=== PATIENT | male | born 1955 | race Caucasian/White ===

== ENCOUNTER → 2018-12-25 13:57 | Outpatient (CLI) | payer MEDICARE, OTHER, SELFPAY ==
[2018-12-25 13:10] VITALS: BMI 24.7
[2018-12-25 14:35] LABS: Hematocrit 46.3 % (40-54); Mean Corp Hgb Conc 34.6 g/gl (32-36); Mean Corpuscular Hgb 33.2 pg (27.0-32.0); Mean Corpuscular Volume 96.1 fL (80-94); Mean Platelet Vol. 11.1 fl (6.2-12.0); Platelet Count 290 K/mm3 (150-450); RBC Distribution Width CV 15.6 % (11.6-14.6); RBC Distribution Width SD 53.7 fl (35.1-43.9); Red Blood Count 4.82 M/mm3 (4.6-6.2); White Blood Count 7.9 K/mm3 (4.4-11.0)
[2018-12-25 14:40] LABS: Scan Indicated on CBC? Y/N NO
[2018-12-25 14:42] LABS: ALB/GLOB Ratio 1.1 RATIO (0.9-2.4); AST(SGOT) 21 U/L (15-37); Alanine Aminotransfer ALT/SGPT 19 U/L (16-61); Albumin, Serum 3.6 g/dL (3.2-5.0); Alkaline Phosphatase 56 U/L (45-117); Anion Gap 6 (5-15); BUN 20 mg/dL (7-18); BUN/Creat Ratio 18.2 RATIO (10-20); Calcium,Total 8.7 mg/dL (8.5-10.1); Chloride 106 mmol/L (98-107); EST Glomerular Filtration Rate 71 mL/min (>60); Est Glom Filt Rate - Afr Amer 86 mL/min (>60); Globulin 3.4 g/dL (2.2-4.2); Glucose 94 mg/dL (74-106); Potassium 4.4 mmol/L (3.5-5.1); Sodium Level 141 mmol/L (136-145)
[2018-12-28 13:01] LABS: Carcinoembryonic Antigen 4.3 ng/mL (0.0-4.7)
== END ==
PROVIDERS: Family Provider Family Medicine; PCP Family Medicine; Referring Provider Surgery; Visit Provider Surgery
DX: Z01.818 Encounter for other preprocedural examination (principal); Z85.038 Personal history of other malignant neoplasm of large intestine
CPT/HCPCS: 36415; 80053; 82378; 85027

== ENCOUNTER → 2018-12-31 06:51 | Outpatient (CLI) | payer MEDICARE, OTHER, SELFPAY ==
[2018-12-25 13:10] VITALS: BMI 24.7
--- NOTE | 2018-12-31 06:54 | CT_ITS ---
STUDY: CT ABDOMEN AND PELVIS WITH CONTRAST REASON FOR EXAM: Male, 63 years old. Abdomen pain above the umbilicus since colostomy. Pain lessens when lying down. Abdomen tightenings when walking. Colon cancer with colostomy P with radiation therapy and chemotherapy. RADIATION DOSAGE (If Supplied By Facility): CTDIvol = ( 13.32 ) mGy, DLP = ( 689.36 ) mGycm TECHNIQUE: Transaxial images were obtained from the dome of the diaphragm to the symphysis pubis without oral contrast. 100 IV/Oral Isovue 300 was administered. Sagittal and coronal images were reconstructed. Individualized dose optimization techniques were used for this CT. COMPARISON: None. FINDINGS: The visualized lung bases demonstrate a tiny calcified pulmonary granuloma within the right lateral lung base as well as mild to moderate, bibasal or dependent atelectasis. The visualized portions of the heart are within normal limits except for minimal calcified coronary artery plaque. Normal liver. There is high density sludge versus small calculi within the dependent region of the gallbladder neck, sequence 2, image 35. There is no intrahepatic nor extrahepatic biliary ductal dilatation. No evident choledocholithiasis. There is a diminutive spleen, potentially a splenic remnant and an adjacent tiny splenule. These findings appear unremarkable. Normal pancreas. Normal bilateral adrenal glands. There is an approximately 3.4 cm maximum dimension low density uniform focus involving and extending from the right renal anterior inferior pole. This finding measures approximately 22 Hounsfield units. There is an approximately 3.9 cm maximum dimension, amorphous, uniform low density focus within the central collecting system partially extending into the cortex and the island involving the left renal lower pole posteriorly. Normal visualized stomach. There is diastases of the rectus abdominis with extension of nondistended small bowel within the ventral midline, sequence 2, image 67. No evidence of small bowel strangulation or herniation. There are a few, nonspecific small bowel air-fluid levels involving nondistended small bowel loops. No inguinal hernia. Unremarkable appearing urinary bladder. There is a large amount of air and stool throughout the cecum, ascending colon, transverse colon and proximal descending colon. A left lower quadrant unremarkable-appearing ostomy is identified. No evidence of ostial herniation. There is non-visualization of the appendix. There is no free fluid. There is no free air. There is a large infrarenal abdominal aortic aneurysm measuring 4.62 cm in AP dimension by 4.7 cm transversely extending over a length of approximately 13.1 cm and extending into and involving the proximal common iliac arteries bilaterally. Multifocal calcified plaque is identified. The opacified region through the abdominal aortic aneurysm measures 2.9 cm in AP dimension by 3.2 cm in transverse dimension. No evidence of leaking. 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 Normal inferior vena cava. Normal urinary bladder. There is no evident acute osseous abnormality. There is no suspicious lytic or blastic osseous finding. Mild diffuse spinal degenerative changes are identified. CT/Abdomen/Pelvis WITH Contrast IMPRESSION: Cholelithiasis without CT evidence of cholecystitis. Tiny spleen and splenule. These findings may be congenital versus may represent sequela of prior trauma and subsequent surgery. Please correlate with surgical and trauma history. Findings most consistent with high dense/complicated right renal exophytic cyst. Findings most compatible with hyperdense/complicated left parapelvic cyst. Diastases of rectus abdominis with mild extension of nondistended small bowel within the ventral midline. No evidence of small bowel strangulation or herniation. No evidence of obstruction. No gross free fluid or free air. Nonspecific air-fluid levels within nondistended small bowel. Very large amount of air and stool throughout the cecum, ascending colon and transverse colon. Indeterminate etiology. Infrarenal abdominal aortic aneurysm as characterized above. No evidence of leakage at this time. Scattered, nonspecific retroperitoneal lymph nodes. Consider follow-up to document stability. No suspicious lytic or blastic osseous finding. Right lateral lung base tiny calcified granuloma and bibasilar dependent atelectasis. Atherosclerotic peripheral vascular disease and atherosclerotic coronary artery disease. Electronically Signed: Juan Manuel Warren MD at 10:09 EDT , Service support ,
[2018-12-31] MEDS: Lidocaine Jelly 2% 20 ML Syringe (URO-JET) 20 APPLIC TOPICAL (08:00)
--- NOTE | 2018-12-31 08:10 | NURSING ---
AFTER UROJET PT UNABLE TO TOLERATE RECTAL CONTRAST. DR. CONTRERAS CONTACTED AND TOLD TO PROCEED WITH ABDOMEN/PELVIS CT.
== END ==
PROVIDERS: Family Provider Family Medicine; PCP Family Medicine; Referring Provider Surgery; Visit Provider Surgery
DX: R10.9 Unspecified abdominal pain (principal); Z85.038 Personal history of other malignant neoplasm of large intestine
CPT/HCPCS: 74177; Q9967; A4216

== ENCOUNTER 2019-01-02 05:20 | Day surgery (SDC) | payer MEDICARE, OTHER, SELFPAY ==
[2018-12-25 13:10] VITALS: BMI 24.7
--- NOTE | 2018-12-25 13:58 | HP_ITS ---
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 Required: No Is patient in pain?: Yes (mid abdomen ) Pain scale (1-10): 4 Allergies No Known Allergies Allergy (Verified 12/25/18 13:11) Medications atorvastatin 20 mg tablet 20 mg PO QHS 12/25/18 [History Confirmed 12/25/18] PFSH Medical History COPD (chronic obstructive pulmonary disease) (Chronic) Abdominal pain (Acute) Tobacco abuse (Acute) History of rectal cancer (Acute) Constipation (Acute) Hyperlipidemia (Acute) Personal history of colon cancer (Acute) Surgical History History of colectomy (Acute ~2009) History of colonoscopy (Acute) Family History Mother Diabetes Social History Smoking Status: Heavy Smoker (>10/day) Tobacco: How many years used: 15 HPI HPI HPI: DEO DADA, is a 63 M who presents to the office today for HPI HPI Surgical H&P: Yes HPI: DEO DADA, is a 63 M who presents to the office today for surgical consultation regarding abdominal pain. The patient is kindly referred by Dr. Bo Alston and a written copy of my surgical consult and recommendations will be returned to Dr. Alston. 63-year-old gentleman. As best as I can tell he had in [place] while Dr Durbin perform a low anterior resection. Apparently there was initial stomal diversion. Then that was taken back down but then there was stricturing. The patient was sent to Dr. Wilson at [facility]. Apparently a repeat resection was performed but primary anastomosis could not be accomplished. A repeat now permanent end sigmoid colostomy was created. The patient had had chemoradiation felt to be contributing to the stenosis as well as there is a suspected leak. The [facility] procedure was performed May 21, 2010. At its when the leak and scar tissue was encountered. At that time there is no evidence of pelvic recurrence. It was felt however not able to connect to the remaining neorectum. Apparently then the patient had another operation 3 days later on May 24, 2010 and exploratory laparotomy evacuation of intra-abdominal hematoma and a splenectomy. The patient is never followed up with anyone regarding his rectal cancer. Ever since his very original procedure he complained of a tight aching pulling sensation in his abdomen. This is been present for 11 years. He claims that when he lies down at night he gets comfort but with increased activity throughout the day his abdomen becomes very tight stiff sore. It limits his ability to be active. He does not describe a capsule mass or bulge. He is just newly establish care with Dr. Bo Alston. However over multiple years he has not had laboratory or imaging or endoscopy. He states that his weight is stable. He notes occasional mucus per rectum. He denies myocardial infarction or stroke or diabetes. It is of note that he has been a lifelong cigarette smoker at the rate of at least a pack and 1/2/day ROS General General: Yes colon cancer; no weight change, appetite, fatigue, breast cancer or weakness HEENT HEENT: No difficulty swallowing, eye injury, eye surgery, swollen glands or hoarseness Endo Endocrine: No thyroid disease, diabetes mellitus, thyroid cancer, Hair loss, heat intolerance or cold intolerance Cardio Cardiovascular: No murmur, pacemaker, heart disease, atrial fibrillation, high blood pressure, heart attack, heart stent, palpitations, shortness of breat with exertion or chest pain Resp Respiratory: No shortness of breath, No sleep apnea, No cough, No COPD, No asthma, No emphysema, No wheezing Gastro Gastrointestinal: Yes abdominal pain, No nausea or vomiting, No diarrhea, No constipation, Yes blood in stool, No acid reflux, No hemorrhoids, No ulcers, No gallbladder problem, Yes black,tarry stools Neuro Neurologic: No weakness Exam Const General: cooperative Nutritional Appearance: average body habitus Orientation: alert, awake, oriented x3 Other: Heavy tobacco staining involving most of his mustache heavy odor of tobacco Eyes General: appearance normal, both eyes and all related structures Resp Other: Diminished respiratory excursion, minimal scattered wheeze. No rales Cardio Rate: regular rate Rhythm: regular rhythm Heart Sounds: no murmurs GI Other: Soft, midline incision extending from the xiphoid to the pubis. Bilateral upper quadrant transverse incision site previous stomas. Permanent stoma in the left lower quadrant. Findings suggest a fascial defect in the right upper quadrant at the stoma site. Occasional tinkles of bowel sounds. No focal tenderness. No open wounds Other: Groins nontender Skin General: no rashes or lesions noted Neuro General: alert, awake Extrem General: no calf tenderness bilaterally Psych Affect: normal affect Assessment & Plan Problems 1. History of rectal cancer Z85.048 2. Tobacco abuse Z72.0 3. Generalized abdominal pain R10.84 4. Chronic obstructive pulmonary disease, unspecified COPD type J44.9 Plan 63-year-old gentleman with a 9-year history of abdominal pain. He states this abdominal pain is been present ever since his original surgery for his rectal cancer. He has had original rectal cancer surgery with the stoma. Then he had a takedown of the stomach with stricturing. Then he had a redo surgery resecting the area of stricture and re-performing an end sigmoid colostomy. He then had emergency surgery because of hemorrhage from his spleen. He has evidence of stoma sites in the right upper quadrant left upper quadrant and left lower quadrant. He has a midline incision extends from the xiphoid to the pubis. He is a lifelong cigarette smoker at at least a rate of 1.5 pack/day. He is not interested in stopping. He clearly has COPD in addition. He has chronic abdominal pain. On clinical exam I suspect probable small ventral incisional hernias. It is not clear however that this is the source of his pain. He has not had routine surgical cancer follow-up. He has not had a colonoscopy since his most recent surgery in 2009 and permanent sigmoid stoma. He has not had any inspection of the remaining rectum. I recommend a complete metabolic profile and a CBC and his CEA I recommend a CT scan of the abdomen and pelvis with oral and IV and rectal contrast I recommend a colonoscopy per his stoma and per the small rectal pouch. Pending them the above findings can determine whether he potentially has ventral incisional hernias or whether he potentially has a partial small bowel obstruction or whether he has recurrent malignancy. He has had an opportunity to ask and have questions answered. I very much appreciate the kind opportunity of assisting with his surgical care and we will try to update his findings. CC: Dr. Bo Suggs M.D., F.A.C.S. Orders Orders: Colonoscopy Today Z85.038 Comprehensive Metabolic Profil Today Z01.818 Abdomen/Pelvis WITH Contrast Today R10.9, Z85.038 CBC-Complete Blood Cnt No Diff Today Z01.818 Carcinoembryonic Antigen Today Z85.038 Coding Level of Care Code Comprehensive,moderate Diagnoses History of rectal cancer Z85.048 Tobacco abuse Z72.0 Generalized abdominal pain R10.84 ??Abdominal location: generalized Chronic obstructive pulmonary disease, unspecified COPD type J44.9 ??COPD type: unspecified COPD 12/25/18 1358 <Electronically signed by Dorian Suggs MD> Date Dorian Suggs MD
[2019-01-01 05:53] VITALS: BP 163/90; PULSE 64; RESP 16; TEMP 36.5; O2SAT 100; BMI 24.6
--- NOTE | 2019-01-01 06:10 | SUR.PREOP ---
ATTEMPTED FLEETS ENEMA PT. C/O OF SEVER SHARP PAIN AND REFUSED. LET PT. ATTEMPT TO GIVE OWN ENEMA PT. UNABLE TO ALSO. DR. CONTRERAS HERE AND NOTIFIED.
--- NOTE | 2019-01-01 06:15 | SUR.PREOP ---
PT. CASE CANCELLED DUE TO BROWN STOOL IN ENEMA BAG RESCHEDULING FOR TOMMORROW AM.
--- NOTE | 2019-01-01 06:19 | PCM.PN.BLA ---
Progress Note Patient's bowel prep is not complete. He still has significant colored stool from his colostomy. We will postpone his outpatient colonoscopy today reprep and reschedule his procedure for tomorrow morning. Dorian Suggs M.D., F.A.C.S.
[2019-01-02] VITALS (9 sets, daily range): BP systolic 120–180; BP diastolic 68–96; PULSE 64–71; RESP 16–18; TEMP 36.4–36.5; O2SAT 96–100; BMI 24.6
--- NOTE | 2019-01-02 05:46 | HP.PCM_ITS ---
Problem List (1) Abdominal pain Status: Acute Qualifiers: History and Physical Date of Admission: 01/02/19 MR#:[id number]:[id number] Name: DEO GARLAND Rep #: [id number] : 1955 Provider: Dorian Suggs MD Age/Sex: 63/M Location: [facility] Status: Signed Intake Vital Signs 12/25/18 Height 5 ft 10 in 12/25/18 Weight: 172 lb 3 oz 12/25/18 Body Mass Index (BMI) 24.7 12/25/18 Blood Pressure 164/100 H 12/25/18 Blood Pressure Location Rt brachial 12/25/18 Blood Pressure Position Sitting 12/25/18 Respiratory Rate 20 H 12/25/18 Pulse Rate 81 12/25/18 Pulse Ox 99 Intake Visit Reasons: ABD PAIN/HX OF COLON CA Chief Complaint: abd pain/ hx colectomy Body 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 Frame 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 Required: No Is patient in pain?: Yes (mid abdomen ) Pain scale (1-10): 4 Allergies No Known Allergies Allergy (Verified 12/25/18 13:11) Medications atorvastatin 20 mg tablet 20 mg PO QHS 12/25/18 [History Confirmed 12/25/18] PFSH Medical History COPD (chronic obstructive pulmonary disease) (Chronic) Abdominal pain (Acute) Tobacco abuse (Acute) History of rectal cancer (Acute) Constipation (Acute) Hyperlipidemia (Acute) Personal history of colon cancer (Acute) Surgical History History of colectomy (Acute ~2009) History of colonoscopy (Acute) Family History Mother Diabetes Social History Smoking Status: Heavy Smoker (>10/day) Tobacco: How many years used: 15 HPI HPI HPI: DEO GARLAND, is a 63 M who presents to the office today for HPI HPI Surgical H&P: Yes HPI: DEO GARLAND, is a 63 M who presents to the office today for surgical consultation regarding abdominal pain. The patient is kindly referred by Dr. Bo Alston and a written copy of my surgical consult and recommendations will be returned to Dr. Alston. 63-year-old gentleman. As best as I can tell he had in [place] while Dr Durbin perform a low anterior resection. Apparently there was initial stomal diversion. Then that was taken back down but then there was stricturing. The patient was sent to Dr. Wilson at [facility]. Apparently a repeat resection was performed but primary anastomosis could not be accomplished. A repeat now permanent end sigmoid colostomy was created. The patient had had chemoradiation felt to be contributing to the stenosis as well as there is a suspected leak. The [facility] procedure was performed May 21, 2010. At its when the leak and scar tissue was encountered. At that time there is no evidence of pelvic recurrence. It was felt however not able to connect to the remaining neorectum. Apparently then the patient had another operation 3 days later on May 24, 2010 and exploratory laparotomy evacuation of intra-abdominal hematoma and a splenectomy. The patient is never followed up with anyone regarding his rectal cancer. Ever since his very original procedure he complained of a tight aching pulling sensation in his abdomen. This is been present for 11 years. He claims that when he lies down at night he gets comfort but with increased activity throughout the day his abdomen becomes very tight stiff sore. It limits his ability to be active. He does not describe a capsule mass or bulge. He is just newly establish care with Dr. Bo Alston. However over multiple years he has not had laboratory or imaging or endoscopy. He states that his weight is stable. He notes occasional mucus per rectum. He denies myocardial infarction or stroke or diabetes. It is of note that he has been a lifelong cigarette smoker at the rate of at least a pack and 1/2/day ROS General General: Yes colon cancer; no weight change, appetite, fatigue, breast cancer or weakness HEENT HEENT: No difficulty swallowing, eye injury, eye surgery, swollen glands or hoarseness Endo Endocrine: No thyroid disease, diabetes mellitus, thyroid cancer, Hair loss, heat intolerance or cold intolerance Cardio Cardiovascular: No murmur, pacemaker, heart disease, atrial fibrillation, high blood pressure, heart attack, heart stent, palpitations, shortness of breat with exertion or chest pain Resp Respiratory: No shortness of breath, No sleep apnea, No cough, No COPD, No asthma, No emphysema, No wheezing Gastro Gastrointestinal: Yes abdominal pain, No nausea or vomiting, No diarrhea, No constipation, Yes blood in stool, No acid reflux, No hemorrhoids, No ulcers, No gallbladder problem, Yes black,tarry stools Neuro Neurologic: No weakness Exam Const General: cooperative Nutritional Appearance: average body habitus Orientation: alert, awake, oriented x3 Other: Heavy tobacco staining involving most of his mustache heavy odor of tobac co Eyes General: appearance normal, both eyes and all related structures Resp Other: Diminished respiratory excursion, minimal scattered wheeze. No rales Cardio Rate: regular rate Rhythm: regular rhythm Heart Sounds: no murmurs GI Other: Soft, midline incision extending from the xiphoid to the pubis. Bilateral upper quadrant transverse incision site previous stomas. Permanent stoma in the left lower quadrant. Findings suggest a fascial defect in the right upper quadrant at the stoma site. Occasional tinkles of bowel sounds. No focal tenderness. No open wounds Other: Groins nontender Skin General: no rashes or lesions noted Neuro General: alert, awake Extrem General: no calf tenderness bilaterally Psych Affect: normal affect Assessment & Plan Problems 1. History of rectal cancer Z85.048 2. Tobacco abuse Z72.0 3. Generalized abdominal pain R10.84 4. Chronic obstructive pulmonary disease, unspecified COPD type J44.9 Plan 63-year-old gentleman with a 9-year history of abdominal pain. He states this abdominal pain is been present ever since his original surgery for his rectal cancer. He has had original rectal cancer surgery with the stoma. Then he had a takedown of the stomach with stricturing. Then he had a redo surgery resecting the area of stricture and re-performing an end sigmoid colostomy. He then had emergency surgery because of hemorrhage from his spleen. He has evidence of stoma sites in the right upper quadrant left upper quadrant and left lower quadrant. He has a midline incision extends from the xiphoid to the pubis. He is a lifelong cigarette smoker at at least a rate of 1.5 pack/day. He is not interested in stopping. He clearly has COPD in addition. He has chronic abdominal pain. On clinical exam I suspect probable small ventral incisional hernias. It is not clear however that this is the source of his pain. He has not had routine surgical cancer follow-up. He has not had a colonoscopy since his most recent surgery in 2009 and permanent sigmoid stoma. He has not had any inspection of the remaining rectum. I recommend a complete metabolic profile and a CBC and his CEA I recommend a CT scan of the abdomen and pelvis with oral and IV and rectal contrast I recommend a colonoscopy per his stoma and per the small rectal pouch. Pending them the above findings can determine whether he potentially has ventral incisional hernias or whether he potentially has a partial small bowel obstruction or whether he has recurrent malignancy. He has had an opportunity to ask and have questions answered. I very much appreciate the kind opportunity of assisting with his surgical care and we will try to update his findings. CC: Dr. Bo Suggs M.D., F.A.C.S. Orders Orders: Colonoscopy Today Z85.038 Comprehensive Metabolic Profil Today Z01.818 Abdomen/Pelvis WITH Contrast Today R10.9, Z85.038 CBC-Complete Blood Cnt No Diff Today Z01.818 Carcinoembryonic Antigen Today Z85.038 Coding Level of Care Code Comprehensive,moderate Diagnoses History of rectal cancer Z85.048 Tobacco abuse Z72.0 Generalized abdominal pain R10.84 ??Abdominal location: generalized Chronic obstructive pulmonary disease, unspecified COPD type J44.9 ??COPD type: unspecified COPD 12/25/18 1358 <Electronically signed by Dorian Suggs MD> Date Dorian Suggs MD Cosigner Signature: Date (if applicable) CC: Bo Alston MD I have examined the patient the following changes are noted:
--- NOTE | 2019-01-02 05:51 | NURSING ---
lung sounds rub in r base other lobes clear.
--- NOTE | 2019-01-02 06:30 | COLBX_PTH ---
PATIENT: DEO GARLAND LOC: EN U#:[id number] AGE/SX: 63/M ROOM: RE01/02/[address]: Dr. Dorian Suggs MD : 1955 BED: DIS: 01/02/2019 SPEC #: [id number] RECD: 01/02/19 09:41 STATUS: CHASITY NILTON #: [id number] MARCELINO: 01/02/19 06:[address]: Dorian Suggs DEPT: SURGICAL PATHOLOGY RECD BY: Nickolas Maldonado ENTERED: 01/02/19 10:55 SP TYPE: COLON BX OTHR DR: Dr. Bo Alston MD Tissues: Transverse colon Procedures: Surgery Specimen Level IV HEADER OPERATION: Colonoscopy (MOD) PRE-OP DIAGNOSIS: Abdominal pain TISSUE SUBMITTED: Proximal transverse polyp biopsy MICROSCOPIC DIAGNOSIS Proximal transverse polyp biopsy: Tubular adenoma. CE:heaven 01/03/19 MICROSCOPIC DESCRIPTION Slides are reviewed. GROSS DESCRIPTION Received in fixative is one container labeled with the patient's name and designated proximal transverse polyp biopsy. The specimen consists of two irregular fragments of light lyn soft tissue that in aggregate measure 0.5 x 0.3 x 0.1 cm. The specimen is totally submitted in one cassette. / SJ:heaven 01/02/19 TC:1 CPT: 62796
== END 2019-01-02 07:28 | disposition home or self-care (01) ==
LOC: EN 05:21 → AC 05:21
PROVIDERS: Family Provider Family Medicine; PCP Family Medicine; Referring Provider Family Medicine; Visit Provider Surgery
PROC: 0DJD8ZZ Inspection of Lower Intestinal Tract, Via Natural or Artificial Opening Endoscopic (ICD-10-PCS; CPT 45378; principal; 2019-01-02 06:25)
DX: D12.3 Benign neoplasm of transverse colon (principal); R10.84 Generalized abdominal pain; J44.9 Chronic obstructive pulmonary disease, unspecified; K62.4 Stenosis of anus and rectum; Z72.0 Tobacco use; Z85.048 Personal history of other malignant neoplasm of rectum, rectosigmoid junction, and anus; Z98.0 Intestinal bypass and anastomosis status
CPT/HCPCS: 45380; 88305; 99152; 99153; J7120

== ENCOUNTER → 2019-01-14 07:27 | Outpatient (CLI) | payer MEDICARE, OTHER, SELFPAY ==
[2019-01-08 14:50] VITALS: BMI 24.6
--- NOTE | 2019-01-14 07:28 | US_ITS ---
STUDY: ABDOMINAL ULTRASOUND - RIGHT UPPER QUADRANT REASON FOR VISIT: Male, [address] scan. Colon cancer. Abdominal pain. TECHNIQUE: Ultrasound evaluation of the right upper quadrant was performed with real-time and static zabala-scale imaging. TECHNICAL QUALITY: Adequate. COMPARISON: CT scan 12/31/2018. FINDINGS: Liver: The liver measures 16.3 cm. There is normal echogenicity of the liver. The bile ducts are within normal limits. There is hepatic color flow. The direction of portal flow is hepatopetal. There is no demonstrated mass lesion. Gallbladder: Normal distended gallbladder. The gallbladder wall measures 2.7 mm. There is a negative sonographic Neri's sign. There is no pericholecystic fluid. Probable sludge ball. Possible small associated gallstones. Common Bile Duct (C.B.D.): The common bile duct measures 4.8 mm. Pancreas: Normal size of the head, body and tail of the pancreas. There is normal echogenicity of the pancreas. There is no demonstrated pancreatic mass or cyst. Right Kidney: Normal size of the right kidney. The right kidney measures 12.0 cm. Normal renal cortex. The right cortex measures 1.7 cm. 2 renal cysts measuring 2.0 and 2.9 cm. There is no right hydronephrosis. US/Gallbladder IMPRESSION: Sludge and possible tiny stones in the gallbladder. Electronically Signed: Ethan Rodriguez MD at 19:06 EDT , Service support ,
== END ==
PROVIDERS: Family Provider Family Medicine; PCP Family Medicine; Referring Provider Surgery; Visit Provider Surgery
DX: R10.9 Unspecified abdominal pain (principal); R93.5 Abnormal findings on diagnostic imaging of other abdominal regions, including retroperitoneum
CPT/HCPCS: 76705

== ENCOUNTER → 2019-09-06 11:54 | Outpatient (CLI) | payer MEDICARE, OTHER, SELFPAY ==
[2019-01-08 14:50] VITALS: BMI 24.6
[2019-09-06 12:31] LABS: BUN 20 mg/dL (7-18); Creatinine, Serum 1.13 mg/dL (0.70-1.30); EST Glomerular Filtration Rate 69 mL/min (>60); Est Glom Filt Rate - Afr Amer 83 mL/min (>60)
--- NOTE | 2019-09-06 13:28 | CT_ITS ---
STUDY: T ANGIOGRAM ABDOMEN AND PELVIS WITH CONTRAST REASON FOR EXAM: Male, 64 years old. AAA RADIATION DOSAGE (If Supplied By Facility): CTDIvol = ( 22.08 ) mGy, DLP = ( 450.54 ) mGycm. Individualized dose optimization techniques were used for this CT.? TECHNIQUE: Multiple axial images of the abdomen and pelvis were obtained from the base of the lungs to the iliac crest after the administration of IV contrast. 100 mL of Isovue-300 was administered. Adjuvant coronal reformatted images are performed. COMPARISON: December 31, 2018 CT scan abdomen and pelvis FINDINGS: At the level of the gastroesophageal junction the aorta measures 3.1 x 3.5 cm. On prior study it measured 3.2 x 3.4 cm. At the level of the celiac ,aorta measures 2.8 x 3.8 cm. There is a moderate to severe focal narrowing of the takeoff of the celiac secondary to atherosclerotic disease and soft plaque. See image #76. This is similar to the prior study allowing for differences in technique. There is a wide takeoff of the splenic mesenteric artery with partial calcification. There is mild to moderate narrowing of the lumen. The aorta at the level of the renal arteries measures 2.1 x 2.9 cm. Compared to prior study this is relatively stable. Distal to the renal arteries the aorta becomes aneurysmal over at least a 15 to 16 cm segment from the renal arteries to the bifurcation. There is at the level of L3 aorta is peripherally thrombosed and there is central luminal contrast measuring 2.6 x 3.0 cm. The caliber of the Aorta measures 5.0 x 5.0 cm. On prior study at approximately the same level the aorta measures 4.5 x 4.9 cm. In prior study the maximal diameter is approximately 5.0 x 4.5 cm. The maximal diameter may measure up to 5.1 x 5.0 cm on today''s study. The aorta does taper some towards the bifurcation. There is aneurysmal dilatation of the right common iliac artery measuring 3.2 x 2.88 cm. The left common iliac artery measures 2.8 x 2.2 cm. There is a contrasted appearance of the proximal left internal carotid artery which which shows high-grade distal calcification. There is contrast enhancement of the right external carotid artery appears tortuous. There is peripheral thrombus. There is a narrowed appearance of the takeoff left internal carotid artery which becomes aneurysmal measuring up to 1.5 cm. There is contrast enhancement of the proximal left internal carotid artery with stenotic plaque in the distal vessel. There is tortuosity and contrast enhancement of the left external carotid artery. The base of the heart is enlarged. The base of the lungs are clear. The liver is enlarged mildly fatty infiltrated. There are gallstones in the pancreas. There is a residual splenule demonstrated measuring 2.6 x 3 cm. The pancreas appears normal. The adrenal glands are unremarkable. There is a benign-appearing stable right renal cyst measuring 3.3 x 3 cm with benign features. There is a stable left renal cyst measuring 2.5 x 2.4 cm with benign features. The stomach appears grossly normal and decompressed. The small bowel is of normal caliber. There is abundant stool in the visualize colon. There is postoperative change in the left and midline abdomen. There is a visualized left side colostomy. There is postoperative thickening of the soft tissues of the pelvis which is stable since prior study in the presacral space measures up to 2.2 x 3.4 cm. The prostate is within normal limits in size and contains calcification. The bladder appears partially distended. The wall is mildly thickened. There is degenerative change of the lumbar spine. There is a left of midline respiratory lymph node measuring 1.6 x 1.8 cm image #[id number] which is stable since prior study. CT/CT ANGIO ABD&PEL W/O&W/DYE IMPRESSION: Slightly enlarged abdominal aortic aneurysm measuring approximately 5 x 5 cm when compared to prior study as detailed above. 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 Advanced atherosclerotic disease. There is stable prevascular space soft tissue density and thickening. Partially distended mildly thickened wall of the bladder could consider cystitis. Atypical but stable left-sided retroperitoneal lymph node measuring 1.6 x 1.8 cm. Status post colonoscopy constipation. Impression visualize mild to moderate cardiomegaly. Cholelithiasis. Remaining splenule left upper quadrant. Electronically Signed: Lidia Richey MD at 15:28 EST Tel , Service support ,
== END ==
PROVIDERS: Family Provider Family Medicine; PCP Family Medicine; Referring Provider Surgery Vascular Surgery; Visit Provider Surgery Vascular Surgery
DX: E78.00 Pure hypercholesterolemia, unspecified (principal); C18.9 Malignant neoplasm of colon, unspecified; I71.4 Abdominal aortic aneurysm, without rupture; Z72.0 Tobacco use
CPT/HCPCS: 36415; 74174; 82565; 84520; Q9967

== ENCOUNTER → 2020-03-19 12:53 | Outpatient (CLI) | payer MEDICARE, OTHER, SELFPAY ==
[2019-01-08 14:50] VITALS: BMI 24.6
--- NOTE | 2020-03-19 13:12 | CT_ITS ---
STUDY: CTA OF THE ABDOMINAL AORTA AND BILATERAL LOWER EXTREMITIES REASON FOR EXAM: Male, 64 years old. PT STATED ABD ANEURYSM F/U, HX COLOSTOMY FOR COLON CA, SPLENECTOMY, SPHINCTER MUSCLE REMOVED RADIATION DOSAGE (If Supplied By Facility): CTDIvol = ( 26.39 ) mGy, DLP = ( 517.60 ) mGycm TECHNIQUE: Axial CT angiography multi-detector data acquisition was obtained from the lung bases to the pubic symphysis following intravenous administration of 100ML ISOVUE 370. Axial images and MIP images were reconstructed from the axial data set. Post-processing of the angiographic images was performed, with multiplanar reformation and 3D reconstruction. Individualized dose optimization techniques were used for this CT. TECHNICAL QUALITY: Good COMPARISON: 09/06/2019 Descriptors of Narrowing: None (0%) Mild (< 50%) Moderate (50-70%) Severe (70-90%) Subtotal/Total Occlusion (90-100%) Non-Evaluable (technically non-diagnostic FINDINGS: Abdominal aorta: Slight increase in the diameter of the fusiform aneurysm of the infrarenal abdominal aorta from 5.0 cm in diameter to 5.2 cm in diameter measured at the level of L3. Mild amount of peripheral calcified plaque in a moderate amount of peripheral thrombus. 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 The superior mesenteric artery is widely patent. Inferior mesenteric artery: Occluded Right renal artery(arteries): Single right renal artery with some peripheral calcified plaque producing a moderate (50%) stenosis. Left renal artery(arteries): Single left renal artery with some peripheral calcified plaque producing a moderate (50%) stenosis. Right common iliac artery: 3 cm fusiform aneurysm with peripheral mural thrombus. Right external iliac artery: There is mild diffuse narrowing. Right internal iliac artery: There is moderate diffuse narrowing. Left common iliac artery: 2.8 cm fusiform aneurysm with peripheral mural thrombus. Left external iliac artery: There is mild diffuse narrowing. Left internal iliac artery: There is moderate diffuse narrowing. CT/CT ANGIO ABD&PEL W/O&W/DYE IMPRESSION: Slight increase in the size of the abdominal aortic aneurysm from 5.0 cm in diameter 5.2 cm in diameter. Electronically Signed: Raheem Parish MD at 17:36 EDT Tel , Service support ,
[2020-03-19 13:27] LABS: BUN 24 mg/dL (7-18); Creatinine, Serum 1.04 mg/dL (0.70-1.30); EST Glomerular Filtration Rate 76 mL/min (>60); Est Glom Filt Rate - Afr Amer 92 mL/min (>60)
== END ==
PROVIDERS: PCP Family Medicine; Referring Provider Surgery Vascular Surgery; Visit Provider Surgery Vascular Surgery
DX: I71.4 Abdominal aortic aneurysm, without rupture (principal); E78.70 Disorder of bile acid and cholesterol metabolism, unspecified; C18.9 Malignant neoplasm of colon, unspecified; Z72.0 Tobacco use
CPT/HCPCS: 36415; 74174; 82565; 84520; Q9967

== ENCOUNTER → 2021-03-12 13:10 | Outpatient (CLI) | payer MEDICARE, OTHER, SELFPAY ==
[2019-01-08 14:50] VITALS: BMI 24.6
[2021-03-12 13:50] LABS: BUN 30 mg/dL (7-18); Creatinine, Serum 1.19 mg/dL (0.70-1.30); EST Glomerular Filtration Rate 65 mL/min (>60); Est Glom Filt Rate - Afr Amer 78 mL/min (>60)
--- NOTE | 2021-03-12 14:35 | CT_ITS ---
STUDY: CT ANGIOGRAM OF THE ABDOMEN AND PELVIS. REASON FOR EXAM: Male, 65 years old. AAA W/O RUPTURE RADIATION DOSAGE (If Supplied By Facility): CTDIvol = ( 23.07 ) mGy, DLP = ( 580.38 ) mGycm. Individualized dose optimization techniques were used for this CT.? TECHNIQUE: Multiple axial tomographic images obtained following intravenous contrast menstruation. Coronal and sagittal reconstruction as well as 3-D rendering was obtained. COMPARISON: Comparison is made with prior study dated generally 2019. FINDINGS: Was again, there is evidence of an infrarenal abdominal aortic aneurysm with a transverse dimension of 5.7 cm. There is evidence of mural thrombus within it. There is evidence of atherosclerotic calcification of the aorta as well as the major visceral branches. Mural thrombus is seen. Once again, there is dilatation of the common iliac arteries bilaterally with mural thrombus. Stable 3.7 cm x 3.2 cm septated cyst in the mid inferior aspect of the left kidney. Prostatic calcification. Small gallstones. Moderate amount of fecal material is seen in the colon. CT/CT ANGIO ABD&PEL W/O&W/DYE IMPRESSION: Slight progression in the infrarenal abdominal aortic aneurysm with mural thrombus. The remainder of the examination is unchanged. Electronically Signed: Adair Melendez MD at 15:11 EDT , Service support ,
== END ==
PROVIDERS: PCP Family Medicine; Referring Provider Surgery Vascular Surgery; Visit Provider Surgery Vascular Surgery
DX: I71.4 Abdominal aortic aneurysm, without rupture (principal); Z72.0 Tobacco use
CPT/HCPCS: 36415; 74174; 82565; 84520; Q9967